=== PATIENT | female | born 1990 | race Caucasian/White ===

== ENCOUNTER → 2019-02-22 | Outpatient (REF) | payer BC ==
[2019-02-24 14:36] LABS: HPV HYBRID CAPTURE II Negative (Negative)
== END ==
LOC: M SFHCWAGY 15:13
PROVIDERS: ATTEND Nurse Practitioner Women's Health
DX: Z12.4 Encounter for screening for malignant neoplasm of cervix (principal)
CPT/HCPCS: 87624; G0123